=== PATIENT | female | born 1960 | race Caucasian/White ===

== ENCOUNTER 2018-02-14 15:00 | Inpatient (IN) | payer OTHER ==
[2018-02-14] MEDS ORDERED: DOCUSATE SODIUM 100 MG CAP PO (17:00)
[2018-02-14] MEDS ORDERED: hydrALAzine 20 MG INJ IV (17:00)
[2018-02-14] MEDS ORDERED: HYDROCODONE/APAP (5/325) TAB PO (17:00)
[2018-02-14] MEDS: LEVOFLOXACIN 750MG/D5W (PMX) 150 ML IVPB (17:00)
[2018-02-14] MEDS ORDERED: LORAZEPAM 2 MG INJ IV (17:00)
[2018-02-14] MEDS ORDERED: NACL 0.9% 3 ML SYG IV (17:00)
[2018-02-14] MEDS ORDERED: morphine 2 MG INJ IV (17:00)
[2018-02-14] MEDS ORDERED: NA PHOSPHATE/BIPHOS 133 ML ENEMA PR (17:00)
[2018-02-14] MEDS ORDERED: MAGNESIUM HYDROXIDE 30ML CUP PO (17:00)
[2018-02-14] MEDS ORDERED: ONDANSETRON 4 MG INJ IV (17:00)
[2018-02-14] MEDS ORDERED: NITROGLYCERIN (SL) 0.4 MG TAB SL (17:00)
[2018-02-14] MEDS ORDERED: GLUCOSE GEL 15 GRAM TUBE PO ×2 (17:30)
[2018-02-14] MEDS ORDERED: GLUCOSE GEL 15 GRAM TUBE BUCCAL (17:30)
[2018-02-14] MEDS ORDERED: GLUCAGON 1 MG INJ IM (17:30)
[2018-02-14] MEDS ORDERED: DEXTROSE 50% 50 ML SYRINGE IV ×2 (17:30)
[2018-02-14] MEDS: SOD CHLORIDE 0.45% 1,000 ML IV (17:50)
[2018-02-14] MEDS: INSULIN ASPART [NOVOLOG] 3 ML PEN SC ×3 (17:54→21:23)
[2018-02-14] MEDS: HEPARIN 5,000 UNIT/0.5 ML VIAL SC (17:55)
[2018-02-14 18:16] LABS: LACTATE DEHYDROGENASE 511 IU/L (313-618)
[2018-02-14 18:59] LABS: FREE T4 (FREE THYROXINE) 1.17 ng/dl (0.64-1.79)
[2018-02-14] MEDS: INSULIN GLARGINE [LANtus] 3 ML PEN SC ×2 (20:00→21:22)
[2018-02-14] MEDS: ATORVASTATIN 20 MG TAB PO (20:52)
[2018-02-14] MEDS: LEVOFLOXACIN 500MG/D5W (PMX) 100 ML IVPB (20:52)
[2018-02-14] MEDS: SALMETEROL/FLUTICASONE 100/50 INHA INH (20:52)
[2018-02-14] MEDS ORDERED: HEPARIN 5,000 UNIT/0.5 ML VIAL SC (21:00)
[2018-02-14] MEDS ORDERED: NON-FORMULARY/PATIENT OWN MED (Simvastatin 40 MG) PO (21:00)
[2018-02-14] MEDS: ALBUTEROL/IPRATROPIUM (NEB) 3 ML AMP HHN (22:35)
[2018-02-15] MEDS: ACCU-CHEK XX (02:00)
[2018-02-15] MEDS: METHYLPREDNISOLONE 125 MG INJ IV (03:30)
[2018-02-15] MEDS: PANTOPRAZOLE (EC) 40 MG TAB PO (05:32)
[2018-02-15 05:40] LABS: ADD MAN DIFF? NO
[2018-02-15 05:45] LABS: WHITE BLOOD COUNT 17.1 10^3/ul (4.8-10.8)
[2018-02-15 05:45] LABS: BASOPHILS % 0.2 % (0.0-2.0); HEMOGLOBIN 10.5 g/dl (12.0-16.0); LYMPHOCYTES # 2.1 10^3/ul (0.8-2.9); LYMPHOCYTES % 12.3 % (15.0-51.0); MEAN CORPUSCULAR HEMOGLOBIN 31.5 pg (29.0-33.0); MEAN CORPUSCULAR HGB CONC 33.9 g/dl (32.0-37.0); MEAN CORPUSCULAR VOLUME 93.1 fl (82.0-101.0); MEAN PLATELET VOLUME 9.1 fl (7.4-10.4); MONOCYTE # 0.7 10^3/ul (0.3-0.9); MONOCYTES % 4.3 % (0.0-11.0); NEUTROPHIL # 14.1 10^3/ul (1.6-7.5); NEUTROPHILS % 82.3 % (39.0-77.0); PLATELET COUNT 287 10^3/UL (140-415); RED BLOOD COUNT 3.33 10^6/ul (4.20-5.40); RED CELL DISTRIBUTION WIDTH 12.1 % (11.5-14.5)
[2018-02-15 05:56] LABS: HEMOGLOBIN A1C 10.4 % (0-5.9)
[2018-02-15] MEDS ORDERED: PANTOPRAZOLE (EC) 40 MG TAB PO (06:00)
[2018-02-15 06:09] LABS: BLOOD UREA NITROGEN 27 mg/dl (7-20); CALCIUM 8.8 mg/dl (8.4-10.2); CHLORIDE 105 mmol/L (97-110); PHOSPHORUS 3.7 mg/dl (2.5-4.9)
[2018-02-15] MEDS: SOD CHLORIDE 0.45% 1,000 ML IV (06:18)
[2018-02-15 07:02] LABS: ANION GAP 14 (8-16); CARBON DIOXIDE 25 mmol/L (21-31); CHOL/HDL RATIO 4.7 RATIO; CHOLESTEROL 167 mg/dl (100-200); GLUCOSE 310 mg/dl (70-220); HDL CHOLESTEROL 35 mg/dl (37-92); LDL CHOLESTEROL,CALCULATED 88 mg/dl; MAGNESIUM 1.7 mg/dl (1.7-2.5); SODIUM 140 mmol/L (135-144); TRIGLYCERIDES 219 mg/dl (0-149)
[2018-02-15 07:31] LABS: THYROID STIMULATING HORMONE 0.367 MIU/L (0.465-4.680)
[2018-02-15] MEDS ORDERED: INSULIN ASPART [NOVOLOG] 3 ML PEN SC (08:00)
[2018-02-15] MEDS: INSULIN ASPART [NOVOLOG] 3 ML PEN SC ×7 (08:22→23:03)
[2018-02-15] MEDS ORDERED: NON-FORMULARY/PATIENT OWN MED (Omeprazole* 20 MG) PO (09:00)
[2018-02-15] MEDS: ASPIRIN 81 MG TAB PO (10:08)
[2018-02-15] MEDS: HEPARIN 5,000 UNIT/0.5 ML VIAL SC ×2 (10:08→23:04)
[2018-02-15] MEDS: SALMETEROL/FLUTICASONE 100/50 INHA INH ×2 (10:08→23:01)
[2018-02-15] MEDS: BENZONATATE 100 MG CAP PO (15:06)
[2018-02-15] MEDS: LEVOFLOXACIN 750 MG TABLET PO (15:06)
[2018-02-15] MEDS ORDERED: INSULIN GLARGINE [LANtus] 3 ML PEN SC ×2 (20:00)
[2018-02-15] MEDS: ATORVASTATIN 20 MG TAB PO (23:01)
[2018-02-15] MEDS: GUAIFENESIN LA 600 MG TABSR PO (23:12)
[2018-02-15] MEDS ORDERED: ZOLPIDEM 5 MG TAB PO (23:48)
[2018-02-16] MEDS: ACCU-CHEK XX (01:44)
[2018-02-16] MEDS: ZOLPIDEM 5 MG TAB PO (01:55)
[2018-02-16] MEDS: PANTOPRAZOLE (EC) 40 MG TAB PO (06:05)
[2018-02-16] MEDS: LEVOFLOXACIN 750 MG TABLET PO (06:05)
[2018-02-16 06:29] LABS: ADD MAN DIFF? NO
[2018-02-16 06:33] LABS: WHITE BLOOD COUNT 14.3 10^3/ul (4.8-10.8)
[2018-02-16 06:33] LABS: BASOPHILS % 0.3 % (0.0-2.0); EOSINOPHILS # 0.1 10^3/ul (0.0-0.5); EOSINOPHILS % 0.7 % (0.0-7.0); HEMATOCRIT 31.1 % (37.0-47.0); HEMOGLOBIN 10.5 g/dl (12.0-16.0); LYMPHOCYTES % 21.1 % (15.0-51.0); MEAN CORPUSCULAR HEMOGLOBIN 31.5 pg (29.0-33.0); MEAN CORPUSCULAR HGB CONC 33.8 g/dl (32.0-37.0); MEAN CORPUSCULAR VOLUME 93.4 fl (82.0-101.0); MEAN PLATELET VOLUME 9.4 fl (7.4-10.4); MONOCYTE # 0.7 10^3/ul (0.3-0.9); MONOCYTES % 4.7 % (0.0-11.0); NEUTROPHIL # 10.4 10^3/ul (1.6-7.5); NEUTROPHILS % 72.6 % (39.0-77.0); PLATELET COUNT 318 10^3/UL (140-415); RED BLOOD COUNT 3.33 10^6/ul (4.20-5.40); RED CELL DISTRIBUTION WIDTH 12.5 % (11.5-14.5)
[2018-02-16 06:51] LABS: ANION GAP 12 (8-16); BLOOD UREA NITROGEN 26 mg/dl (7-20); CALCIUM 8.9 mg/dl (8.4-10.2); CARBON DIOXIDE 26 mmol/L (21-31); CHLORIDE 110 mmol/L (97-110); CREATININE 0.72 mg/dl (0.44-1.00); GLUCOSE 275 mg/dl (70-220); SODIUM 144 mmol/L (135-144)
[2018-02-16] MEDS: ASPIRIN 81 MG TAB PO (08:21)
[2018-02-16] MEDS: ACETAMINOPHEN 325 MG TAB PO ×2 (08:21→21:11)
[2018-02-16] MEDS: SALMETEROL/FLUTICASONE 100/50 INHA INH ×2 (08:21→21:12)
[2018-02-16] MEDS: HEPARIN 5,000 UNIT/0.5 ML VIAL SC ×2 (08:24→21:18)
[2018-02-16] MEDS: INSULIN GLARGINE [LANtus] 3 ML PEN SC (08:25)
[2018-02-16] MEDS: INSULIN ASPART [NOVOLOG] 3 ML PEN SC ×7 (08:26→21:23)
[2018-02-16] MEDS: ALBUTEROL/IPRATROPIUM (NEB) 3 ML AMP HHN ×3 (12:59→21:20)
[2018-02-16] MEDS: GUAIFENESIN LA 600 MG TABSR PO (15:04)
[2018-02-16] MEDS: ATORVASTATIN 20 MG TAB PO (21:11)
[2018-02-17] MEDS: ZOLPIDEM 5 MG TAB PO (00:31)
[2018-02-17] MEDS: ACCU-CHEK XX (02:00)
[2018-02-17] MEDS: INSULIN ASPART [NOVOLOG] 3 ML PEN SC ×5 (02:36→12:01)
[2018-02-17 05:57] LABS: ADD MAN DIFF? NO
[2018-02-17 06:03] LABS: WHITE BLOOD COUNT 9.9 10^3/ul (4.8-10.8)
[2018-02-17 06:03] LABS: BASOPHIL # 0.1 10^3/ul (0.0-0.1); BASOPHILS % 0.7 % (0.0-2.0); EOSINOPHILS # 0.2 10^3/ul (0.0-0.5); EOSINOPHILS % 2.4 % (0.0-7.0); HEMATOCRIT 31.2 % (37.0-47.0); HEMOGLOBIN 10.6 g/dl (12.0-16.0); LYMPHOCYTES # 3.5 10^3/ul (0.8-2.9); LYMPHOCYTES % 35.8 % (15.0-51.0); MEAN CORPUSCULAR HEMOGLOBIN 32.1 pg (29.0-33.0); MEAN CORPUSCULAR VOLUME 94.5 fl (82.0-101.0); MEAN PLATELET VOLUME 9.3 fl (7.4-10.4); MONOCYTE # 0.7 10^3/ul (0.3-0.9); MONOCYTES % 7.5 % (0.0-11.0); NEUTROPHIL # 5.2 10^3/ul (1.6-7.5); NEUTROPHILS % 52.9 % (39.0-77.0); PLATELET COUNT 342 10^3/UL (140-415); RED CELL DISTRIBUTION WIDTH 12.1 % (11.5-14.5)
[2018-02-17 06:18] LABS: ANION GAP 12 (8-16); BLOOD UREA NITROGEN 20 mg/dl (7-20); CALCIUM 8.9 mg/dl (8.4-10.2); CARBON DIOXIDE 29 mmol/L (21-31); CHLORIDE 106 mmol/L (97-110); CREATININE 0.82 mg/dl (0.44-1.00); GLUCOSE 272 mg/dl (70-220); POTASSIUM 3.7 mmol/L (3.5-5.1); SODIUM 143 mmol/L (135-144)
[2018-02-17] MEDS: LEVOFLOXACIN 750 MG TABLET PO (06:23)
[2018-02-17] MEDS: PANTOPRAZOLE (EC) 40 MG TAB PO (06:23)
[2018-02-17] MEDS: ALBUTEROL/IPRATROPIUM (NEB) 3 ML AMP HHN ×2 (08:38→12:57)
[2018-02-17] MEDS: INSULIN GLARGINE [LANtus] 3 ML PEN SC (08:54)
[2018-02-17] MEDS: ASPIRIN 81 MG TAB PO (08:55)
[2018-02-17] MEDS: SALMETEROL/FLUTICASONE 100/50 INHA INH (08:55)
[2018-02-17] MEDS: HEPARIN 5,000 UNIT/0.5 ML VIAL SC (09:01)
[2018-02-17] MEDS: GUAIFENESIN LA 600 MG TABSR PO (10:33)
[2018-02-17] MEDS: BENZONATATE 100 MG CAP PO (10:33)
== END 2018-02-17 16:06 | disposition home or self-care (01) | DRG 195 ==
LOC: PP2 02-15 19:21
PROVIDERS: Internal Medicine
DX: J18.9 Pneumonia, unspecified organism (principal); J44.9 Chronic obstructive pulmonary disease, unspecified; E11.65 Type 2 diabetes mellitus with hyperglycemia; I10 Essential (primary) hypertension; E78.00 Pure hypercholesterolemia, unspecified; F17.200 Nicotine dependence, unspecified, uncomplicated; Z79.4 Long term (current) use of insulin
CPT/HCPCS: 71046; 80048; 80061; 82962; 83036; 83615; 83735; 84100; 84439; 84443; 85025; 87040; 87275; 87276; 87279; 87280; 87400; 93306; 94640; 94664; 97161

== ENCOUNTER 2019-01-17 18:49 | Inpatient (IN) | payer OTHER ==
[2019-01-17] MEDS ORDERED: INSULIN GLARGINE [LANtus] 3 ML PEN SC (21:00)
[2019-01-17] MEDS ORDERED: ACETAMINOPHEN 325 MG TAB PO (21:00)
[2019-01-17] MEDS ORDERED: NACL 0.9% 3 ML SYG IV (21:00)
[2019-01-17] MEDS ORDERED: ONDANSETRON 4 MG INJ IV (21:00)
[2019-01-17] MEDS ORDERED: NITROGLYCERIN (SL) 0.4 MG TAB SL (21:00)
[2019-01-17] MEDS ORDERED: HYDROCODONE/APAP (5/325) TAB PO (21:00)
[2019-01-17] MEDS ORDERED: DOCUSATE SODIUM 100 MG CAP PO (21:00)
[2019-01-17] MEDS ORDERED: BISACODYL (EC) 5 MG TAB PO (21:00)
[2019-01-17 21:22] LABS: ADD MAN DIFF? NO
[2019-01-17 21:23] LABS: WHITE BLOOD COUNT 10.6 10^3/ul (4.8-10.8)
[2019-01-17 21:23] LABS: BASOPHILS % 0.2 % (0.0-2.0); HEMATOCRIT 31.3 % (37.0-47.0); LYMPHOCYTES % 9.8 % (15.0-51.0); MEAN CORPUSCULAR HEMOGLOBIN 29.5 pg (29.0-33.0); MEAN CORPUSCULAR HGB CONC 31.9 g/dl (32.0-37.0); MEAN CORPUSCULAR VOLUME 92.3 fl (82.0-101.0); MEAN PLATELET VOLUME 8.9 fl (7.4-10.4); MONOCYTE # 0.1 10^3/ul (0.3-0.9); MONOCYTES % 0.8 % (0.0-11.0); NEUTROPHIL # 9.3 10^3/ul (1.6-7.5); NEUTROPHILS % 87.4 % (39.0-77.0); PLATELET COUNT 372 10^3/UL (140-415); RED BLOOD COUNT 3.39 10^6/ul (4.20-5.40)
[2019-01-17] MEDS ORDERED: GLUCOSE GEL 15 GRAM TUBE PO ×2 (21:30)
[2019-01-17] MEDS ORDERED: DEXTROSE 50% 50 ML SYRINGE IV ×2 (21:30)
[2019-01-17] MEDS ORDERED: GLUCAGON 1 MG INJ IM (21:30)
[2019-01-17] MEDS ORDERED: GLUCOSE GEL 15 GRAM TUBE BUCCAL (21:30)
[2019-01-17 21:46] LABS: ALANINE AMINOTRANSFERASE 12 IU/L (13-69); ALBUMIN 3.1 g/dl (3.3-4.9); ALBUMIN/GLOBULIN RATIO 0.93; ALKALINE PHOSPHATASE 127 IU/L (42-121); ANION GAP 8 (5-13); ASPARTATE AMINO TRANSFERASE 14 IU/L (15-46); BLOOD UREA NITROGEN 26 mg/dl (7-20); CALCIUM 8.8 mg/dl (8.4-10.2); CARBON DIOXIDE 28 mmol/L (21-31); CHLORIDE 103 mmol/L (97-110); CREATINE KINASE 141 IU/L (23-200); CREATININE 1.04 mg/dl (0.44-1.00); Estimated GFR 54 mL/min (>60); POTASSIUM 4.3 mmol/L (3.5-5.1); SODIUM 139 mmol/L (135-144); TOTAL PROTEIN 6.4 g/dl (6.1-8.1)
[2019-01-17 21:55] LABS: B-TYPE NATRIURETIC PEPTIDE 440 PG/ML (0-125)
[2019-01-17 21:58] LABS: CK INDEX 2.1; CK-MB 3.03 ng/ml (0.0-2.4); TROPONIN-I < 0.012 ng/ml (0.000-0.120)
[2019-01-17 22:02] LABS: GLUCOSE 429 mg/dl (70-220)
[2019-01-17] MEDS: ATORVASTATIN 20 MG TAB PO (22:34)
[2019-01-17] MEDS: INSULIN ASPART [NOVOLOG] 3 ML PEN SC ×2 (22:50→23:28)
[2019-01-17] MEDS: HEPARIN 5,000 UNIT/1 ML VIAL SC (22:51)
[2019-01-17] MEDS: INSULIN GLARGINE [LANtus] 3 ML PEN SC (23:38)
[2019-01-17] MEDS: BENZONATATE 100 MG CAP PO (23:40)
[2019-01-18] MEDS ORDERED: predniSONE 20 MG TAB PO (01:00)
[2019-01-18] MEDS: FLUTICASONE/VILANTEROL 100-25 INH ×2 (01:00→08:30)
[2019-01-18] MEDS: FUROSEMIDE 40 MG INJ IV (01:53)
[2019-01-18] MEDS: ACCU-CHEK XX (02:00)
[2019-01-18] MEDS: INSULIN ASPART [NOVOLOG] 3 ML PEN SC ×6 (03:00→21:31)
[2019-01-18] MEDS: ALBUTEROL/IPRATROPIUM (NEB) 3 ML AMP HHN ×2 (03:04→17:30)
[2019-01-18 04:08] LABS: ADD MAN DIFF? NO
[2019-01-18 04:12] LABS: BASOPHILS % 0.3 % (0.0-2.0); HEMATOCRIT 30.5 % (37.0-47.0); LYMPHOCYTES # 1.6 10^3/ul (0.8-2.9); LYMPHOCYTES % 14.6 % (15.0-51.0); MEAN CORPUSCULAR HEMOGLOBIN 29.6 pg (29.0-33.0); MEAN CORPUSCULAR HGB CONC 32.8 g/dl (32.0-37.0); MEAN CORPUSCULAR VOLUME 90.2 fl (82.0-101.0); MONOCYTE # 0.4 10^3/ul (0.3-0.9); MONOCYTES % 3.4 % (0.0-11.0); NEUTROPHIL # 8.8 10^3/ul (1.6-7.5); NEUTROPHILS % 80.3 % (39.0-77.0); PLATELET COUNT 392 10^3/UL (140-415); RED BLOOD COUNT 3.38 10^6/ul (4.20-5.40); RED CELL DISTRIBUTION WIDTH 12.8 % (11.5-14.5)
[2019-01-18 04:12] LABS: WHITE BLOOD COUNT 10.9 10^3/ul (4.8-10.8)
[2019-01-18 04:27] LABS: HEMOGLOBIN A1C 10.2 % (0-5.9)
[2019-01-18 04:28] LABS: CREATINE KINASE 144 IU/L (23-200)
[2019-01-18 04:30] LABS: ALANINE AMINOTRANSFERASE 17 IU/L (13-69); ALBUMIN 3.2 g/dl (3.3-4.9); ALKALINE PHOSPHATASE 133 IU/L (42-121); ANION GAP 10 (5-13); ASPARTATE AMINO TRANSFERASE 14 IU/L (15-46); BILIRUBIN,INDIRECT 0.1 mg/dl (0-1.1); BILIRUBIN,TOTAL 0.1 mg/dl (0.2-1.3); BLOOD UREA NITROGEN 31 mg/dl (7-20); CALCIUM 8.8 mg/dl (8.4-10.2); CARBON DIOXIDE 30 mmol/L (21-31); CHLORIDE 99 mmol/L (97-110); CREATININE 1.29 mg/dl (0.44-1.00); Estimated GFR 42 mL/min (>60); GLUCOSE 328 mg/dl (70-220); MAGNESIUM 1.6 mg/dl (1.7-2.5); POTASSIUM 4.1 mmol/L (3.5-5.1); SODIUM 139 mmol/L (135-144); TOTAL PROTEIN 6.4 g/dl (6.1-8.1)
[2019-01-18 04:41] LABS: CK INDEX 2.8; CK-MB 3.98 ng/ml (0.0-2.4); TROPONIN-I 0.017 ng/ml (0.000-0.120)
[2019-01-18 05:01] LABS: THYROID STIMULATING HORMONE 0.323 MIU/L (0.465-4.680)
[2019-01-18] MEDS: PANTOPRAZOLE (EC) 40 MG TAB PO (06:41)
[2019-01-18] MEDS: HEPARIN 5,000 UNIT/1 ML VIAL SC ×3 (06:52→22:38)
[2019-01-18 07:06] LABS: ADD UMIC YES; UR ASCORBIC ACID NEGATIVE (NEGATIVE); UR BILIRUBIN (Dip) NEGATIVE (NEGATIVE); UR BLOOD (Dip) 1+ mg/dL (NEGATIVE); UR CLARITY CLEAR (CLEAR); UR COLOR STRAW (YELLOW); UR GLUCOSE (Dip) 3+ mg/dL (NEGATIVE); UR KETONES (Dip) NEGATIVE (NEGATIVE); UR LEUKOCYTE ESTERASE (Dip) NEGATIVE Leu/ul (NEGATIVE); UR NITRITE (Dip) NEGATIVE (NEGATIVE); UR RBC 2 /HPF (0-5); UR TOTAL PROTEIN (Dip) 2+ mg/dl (NEGATIVE); UR UROBILINOGEN (Dip) NEGATIVE (NEGATIVE); UR WBC 2 /HPF (0-5)
[2019-01-18] MEDS: ASPIRIN 81 MG TAB PO (08:29)
[2019-01-18] MEDS ORDERED: INSULIN GLARGINE [LANtus] 3 ML PEN SC (09:00)
[2019-01-18] MEDS ORDERED: INFLUENZA VIRUS VACCINE 0.5 ML (DISPENSING) IM* (09:00)
[2019-01-18] MEDS ORDERED: FLUTICASONE/VILANTEROL 100-25 INH (09:00)
[2019-01-18] MEDS: INSULIN GLARGINE [LANTus] (100 UNITS/ML) SYG SC ×2 (10:19→21:20)
[2019-01-18] MEDS: MAGNESIUM SULFATE 2 GM/50 ML 50 ML IVPB (13:47)
[2019-01-18] MEDS: LEVOFLOXACIN 500MG/D5W (PMX) 100 ML IVPB (17:05)
[2019-01-18] MEDS: ARFORMOTEROL TARTRATE 15MCG/2 ML AMP NEB (19:40)
[2019-01-18] MEDS: BUDESONIDE (NEB) 0.25 MG/2 ML AMP HHN (19:47)
[2019-01-18] MEDS: ATORVASTATIN 20 MG TAB PO (21:07)
[2019-01-19] MEDS: ACCU-CHEK XX (02:00)
[2019-01-19] MEDS: PANTOPRAZOLE (EC) 40 MG TAB PO (06:25)
[2019-01-19 06:49] LABS: ADD MAN DIFF? NO
[2019-01-19] MEDS: HEPARIN 5,000 UNIT/1 ML VIAL SC ×2 (06:50→13:46)
[2019-01-19 06:52] LABS: BASOPHIL # 0.1 10^3/ul (0.0-0.1); BASOPHILS % 0.5 % (0.0-2.0); EOSINOPHILS # 0.2 10^3/ul (0.0-0.5); EOSINOPHILS % 1.8 % (0.0-7.0); HEMATOCRIT 31.2 % (37.0-47.0); HEMOGLOBIN 9.7 g/dl (12.0-16.0); LYMPHOCYTES # 2.9 10^3/ul (0.8-2.9); LYMPHOCYTES % 26.9 % (15.0-51.0); MEAN CORPUSCULAR HGB CONC 31.1 g/dl (32.0-37.0); MEAN CORPUSCULAR VOLUME 93.1 fl (82.0-101.0); MEAN PLATELET VOLUME 8.8 fl (7.4-10.4); MONOCYTE # 0.8 10^3/ul (0.3-0.9); MONOCYTES % 7.1 % (0.0-11.0); NEUTROPHIL # 6.7 10^3/ul (1.6-7.5); NEUTROPHILS % 62.8 % (39.0-77.0); PLATELET COUNT 396 10^3/UL (140-415); RED BLOOD COUNT 3.35 10^6/ul (4.20-5.40); RED CELL DISTRIBUTION WIDTH 13.1 % (11.5-14.5)
[2019-01-19 06:52] LABS: WHITE BLOOD COUNT 10.7 10^3/ul (4.8-10.8)
[2019-01-19 07:17] LABS: ALANINE AMINOTRANSFERASE 11 IU/L (13-69); ALBUMIN 2.9 g/dl (3.3-4.9); ALKALINE PHOSPHATASE 117 IU/L (42-121); ANION GAP 5 (5-13); ASPARTATE AMINO TRANSFERASE 13 IU/L (15-46); BLOOD UREA NITROGEN 36 mg/dl (7-20); CALCIUM 8.9 mg/dl (8.4-10.2); CARBON DIOXIDE 31 mmol/L (21-31); CHLORIDE 104 mmol/L (97-110); CREATININE 1.13 mg/dl (0.44-1.00); Estimated GFR 49 mL/min (>60); GLUCOSE 261 mg/dl (70-220); MAGNESIUM 2.2 mg/dl (1.7-2.5); POTASSIUM 4.3 mmol/L (3.5-5.1); SODIUM 140 mmol/L (135-144); TOTAL PROTEIN 5.8 g/dl (6.1-8.1)
[2019-01-19] MEDS: INSULIN ASPART [NOVOLOG] 3 ML PEN SC ×4 (07:55→12:10)
[2019-01-19] MEDS: INSULIN GLARGINE [LANTus] (100 UNITS/ML) SYG SC (07:56)
[2019-01-19] MEDS: ASPIRIN 81 MG TAB PO (08:22)
[2019-01-19] MEDS: FUROSEMIDE 40 MG INJ IV (08:22)
[2019-01-19] MEDS: ARFORMOTEROL TARTRATE 15MCG/2 ML AMP NEB (08:44)
[2019-01-19] MEDS: BUDESONIDE (NEB) 0.25 MG/2 ML AMP HHN (08:45)
== END 2019-01-19 17:47 | disposition home or self-care (01) | DRG 291 ==
LOC: TEL 18:49
DX: I13.0 Hypertensive heart and chronic kidney disease with heart failure and stage 1 through stage 4 chronic kidney disease, or unspecified chronic kidney disease (principal); I50.31 Acute diastolic (congestive) heart failure; J96.00 Acute respiratory failure, unspecified whether with hypoxia or hypercapnia; J45.901 Unspecified asthma with (acute) exacerbation; J44.1 Chronic obstructive pulmonary disease with (acute) exacerbation; E11.9 Type 2 diabetes mellitus without complications; E78.5 Hyperlipidemia, unspecified; K21.9 Gastro-esophageal reflux disease without esophagitis; D72.829 Elevated white blood cell count, unspecified; D64.9 Anemia, unspecified; E83.42 Hypomagnesemia; N18.9 Chronic kidney disease, unspecified; Z72.0 Tobacco use; Z79.4 Long term (current) use of insulin
CPT/HCPCS: 71045; 76775; 80053; 81001; 82550; 82553; 82962; 83036; 83735; 83880; 84443; 84484; 85025; 90686; 93005; 93306; 94640; 94664